=== PATIENT | female | born 1955 | race African-American/Black ===

== ENCOUNTER 2018-03-09 18:32 | Emergency (ER) | payer MEDICAID, MEDICARE ==
[2018-03-09 19:00] LABS: HEMATOCRIT 38.9 % (36.0-47.0); HEMOGLOBIN 13.1 g/dL (12.0-15.5); MEAN CORPUSCULAR HEMOGLOBIN 29 pg (25-35); MEAN CORPUSCULAR HGB CONC 34 g/dL (31-37); MEAN CORPUSCULAR VOLUME 86 fL (79-100); PLATELET COUNT 312 x10^3/uL (140-400); RED BLOOD COUNT 4.54 x10^6/uL (3.50-5.40); RED CELL DISTRIBUTION WIDTH 13.9 % (11.5-14.5); WHITE BLOOD COUNT 10.5 x10^3/uL (4.0-11.0)
[2018-03-09 19:03] LABS: AGAP ISTAT 14 mmol/L (6-14); BUN ISTAT 17 mg/dL (8-26); CHLORIDE ISTAT 102 mmol/L (98-110); CREATININE ISTAT 0.8 mg/dL (0.5-1.4); GLUCOSE ISTAT 140 mg/dL (70-99); HEMATOCRIT ISTAT 39 % (36-40); HEMOGLOBIN ISTAT 13.3 g/dL (12-15); ION CA ISTAT 1.11 mmol/L (1.13-1.32); POTASSIUM ISTAT 3.8 mmol/L (3.5-5.0); SODIUM ISTAT 138 mmol/L (135-145); TOT CO2 ISTAT 27 mmol/L (23-32)
[2018-03-09 19:03] LABS: POC GLUCOSE 140 mg/dL (70-99)
[2018-03-09 19:04] LABS: PARTIAL THROMBOPLASTIN TIME 25 SEC (24-38); PROTHROMBIN TIME PATIENT 12.8 SEC (11.7-14.0)
[2018-03-09 19:16] LABS: ANION GAP 8 (6-14); BLOOD UREA NITROGEN 17 mg/dL (7-20); CALCIUM 9.1 mg/dL (8.5-10.1); CARBON DIOXIDE 27 mmol/L (21-32); CHLORIDE 101 mmol/L (98-107); CREATININE 0.9 mg/dL (0.6-1.0); GFR 76.5; GLUCOSE 144 mg/dL (70-99); POTASSIUM 3.8 mmol/L (3.5-5.1); SODIUM 136 mmol/L (136-145)
[2018-03-09 19:25] LABS: TROPONINI < 0.017 ng/mL (0.000-0.055)
[2018-03-09] MEDS: ALTEPLASE 8 MG IV (19:30)
[2018-03-09] MEDS: ALTEPLASE IV (19:31)
[2018-03-09 19:37] LABS: ISTAT PT 11.6 Sec (10.0-14.0)
[2018-03-09] MEDS: IV NORMAL SALINE 50ML 50 ML IV (20:19)
== END 2018-03-09 19:59 | disposition short-term general hospital (02) ==
LOC: ER 19:59
DX: R29.810 Facial weakness (principal); R46.4 Slowness and poor responsiveness; R47.1 Dysarthria and anarthria; R41.82 Altered mental status, unspecified; Z88.0 Allergy status to penicillin
CPT/HCPCS: 36415; 37195; 70450; 71045; 80047; 80048; 82962; 84484; 85027; 85610; 85730; 93005; 99285-25; J2997

== ENCOUNTER 2021-12-02 13:23 | Inpatient (IN) | payer MEDICAID, OTHER ==
[~2021-12-02] VITALS: Ht 162.6 cm; Wt 88.2 kg
[2021-12-02 13:51] LABS: BASO # 0.1 x10^3/uL (0.0-0.2); BASO % 1 % (0-3); EOS # 0.2 x10^3/uL (0.0-0.7); EOS % 1 % (0-3); HEMATOCRIT 39.6 % (36.0-47.0); HEMOGLOBIN 12.5 g/dL (12.0-15.5); LYMPH # 2.1 x10^3/uL (1.0-4.8); LYMPH % 13 % (24-48); MEAN CORPUSCULAR HEMOGLOBIN 27 pg (25-35); MEAN CORPUSCULAR HGB CONC 32 g/dL (31-37); MEAN CORPUSCULAR VOLUME 84 fL (79-100); MONO % 6 % (0-9); NEUT # 13.4 x10^3/uL (1.8-7.7); NEUT % 80 % (31-73); PLATELET COUNT 540 x10^3/uL (140-400); RED BLOOD COUNT 4.69 x10^6/uL (3.50-5.40); RED CELL DISTRIBUTION WIDTH 15.9 % (11.5-14.5); WHITE BLOOD COUNT 16.8 x10^3/uL (4.0-11.0)
--- NOTE | 2021-12-02 13:52 | PHYS DOC ---
Past Medical History Past Medical History: COPD, Depression, Diabetes-Type II, Glaucoma, Schiz ophrenia Past Surgical History: Other Additional Past Surgical Histo: Unable to obtain Smoking Status: Unknown if ever smoked Alcohol Use: None Drug Use: None General Adult HPI: HPI: Patient is a 66-year-old female, vital signs reviewed, presents to the emergency department via EMS outcomes specialist transport from [facility] for decreased appetite, failure to thrive, abdominal pain for the past 3 days. Patient has a past medical history of paranoid schizophrenia, current urinary tract infection treatment on day 8 of a 10-day Cipro Floxin regimen, anemia, major depressive disorder, type 2 diabetes, blindness of the right eye, emphysema, nicotine dependence, dry eye syndrome. There was no treatment given in route to the emergency department. Patient complains of generalized abdominal pain all over rating 10 out of 10 pain. Complains of shortness of breath, denies chest pain, chest palpitations, chest or nasal congestion, denies recent fever or chills, reports she has cataracts and does not see well, denies aches and pains to other parts of her body, denies dizziness, denies burning with urination, increased urinary frequency, states she has not had a bowel movement for "quite some time now ". States she does not ambulate but uses a wheelchair. Review of Systems: Review of Systems: 14 body systems of review of systems have been reviewed. See HPI for pertinent positives and negative responses, otherwise all other systems are negative, nonpertinent or noncontributory. Constitutional: Negative except as outlined in HPI above. Skin: Negative except as outlined in HPI above. Eyes: Negative except as outlined in HPI above. HENT: Negative except as outlined in HPI above. Respiratory: Negative except as outlined in HPI above. Cardiovascular: Negative except as outlined in HPI above. GI: Negative except as outlined in HPI above. : Negative except as outlined in HPI above. Musculoskeletal: Negative except as outlined in HPI above. Integument: Negative except as outlined in HPI above. Neurologic: Negative except as outlined in HPI above. Endocrine: Negative except as outlined in HPI above. Lymphatic: Negative except as outlined in HPI above. Psychiatric: Negative except as outlined in HPI above. Heart Score: C/O Chest Pain: No Risk Factors: Risk Factors: DM, Current or recent (<one month) smoker, HTN, HLP, family history of CAD, obesity. Risk Scores: Score 0 - 3: 2.5% MACE over next 6 weeks - Discharge Home Score 4 - 6: 20.3% MACE over next 6 weeks - Admit for Clinical Observation Score 7 - 10: 72.7% MACE over next 6 weeks - Early Invasive Strategies Current Medications: Per long term MAR Abilify 20 mg daily acetaminophen 325 mg 2 tabs every 4 hours as needed pain/fever, lispro insulin 10 units with meals plus sliding scale, 81 mg aspirin daily Cipro 250 mg twice daily x10 days started on 11/25/2021, Pepcid 20 mg daily, hydrochlorothiazide 12.5 mg daily, Levemir insulin 10 units nightly, Lexapro 10 mg daily, Lipitor 20 mg daily, loperamide 2 mg every 8 hours as needed diarrhea, Metformin 1000 mg twice daily, milk of magnesia as needed constipation, MiraLAX daily 17 mg, multivitamin daily, Nicorette gum as needed, Norvasc 10 mg daily, Zofran 4 mg 1 tablet as needed every 8 hours nausea. Allergies: Allergies: Allergies Coded Allergies Type Severity Reaction Last Updated Verified Penicillins Allergy Intermediate 03/09/18 Yes Physical Exam: PE: Constitutional: Well developed, well nourished, no acute distress, non-toxic appearance. 56-year-old female in no apparent distress. Patient is wearing incontinence briefs HENT: Normocephalic, atraumatic. Oral mucosa sticky, oropharynx nonerythematous, no deep tissue infectious process appreciated, there is no laryngeal edema, patient speaking in normal voice tones. There is no lymphadeno pam of the head or neck appreciated, bilateral TMs partially obstructed with cerumen, no abnormalities of visualized TMs. Eyes: Conjunctiva normal, no discharge. Sclera opaque Neck: Normal range of motion, no stridor. No nuchal rigidity, no meningeal s igns Cardiovascular: No cyanosis appreciated, distal cap refill less than 2 seconds. Regular rate and rhythm, heart sounds S1-S2. Lungs & Thorax: Patient is in no respiratory distress, no audible adventitious lung sounds appreciated. Lung sounds are clear to auscultation all lung hernandez. Abdomen: Abdomen round, patient obese, nonspecific generalized abdominal pain all 4 quadrants, no masses, no megaly. Skin: Warm, dry, no erythema, no rash. There are abrasions to bilateral lower extremities below both knees, healing, no infectious process appreciated. Back: No tenderness, no deformities. Extremities: No tenderness, no cyanosis, no clubbing, ROM intact, no edema. Distal cap refill less than 2 seconds all 4 extremities. 2+/4 pulses. Neurologic: Alert and oriented X 3, normal motor function, normal sensory function, no focal deficits noted. Psychologic: Affect normal, judgement normal, mood normal. EKG: EKG: EKG performed at 1340 by ED nursing staff shows a sinus tachycardia without other ectopy, heart rate 105 bpm, OH interval 0.130 QTc interval 0.453, no acute STEMI, no ACS, no acute ischemia appreciated, EKG interpreted by ED attending physician Dr. Marin. Radiology/Procedures: Radiology/Procedures: Single AP view of the chest. Comparison: 03/09/2018. Indication: Shortness of breath Findings: There is mild atelectasis in the right lung base. The heart is enlarged but stable. There is no pneumothorax or effusion. No air space or interstitial disease. Impression: 1. No acute cardiopulmonary process. Electronically signed by: Darshan Molina MD (12/02/2021 2:31 PM) [facility] Examination: CT of the abdomen pelvis without contrast HISTORY: History of generalized abdominal pain in 4 quadrants COMPARISON: 04/01/2012 TECHNIQUE: Axial CT images of the abdomen pelvis were performed without contrast. Coronal and sagittal reformats are performed Exposure: One or more of the following individualized dose reduction techniques were utilized for this examination: 1. Automated exposure control 2. Adjustment of the mA and/or kV according to patient size 3. Use of iterative reconstruction technique FINDINGS: Focal consolidation right lower lobe of the lung likely pneumonia or atelectasis. Minimal atelectasis left lung base. No evidence of free air identified in the abdomen. The visualized noncontrasted liver, spleen, left adrenal grossly appears unremarkable. Small calcification identified in the right adrenal gland. Cholecystectomy changes identified. The stomach is mildly distended. The visualized pancreas grossly appears unremarkable The small bowel is nondilated. Mild thickened appearance of the wall of the small bowel is in the loops in the left mid abdomen. Moderate amount of feces and gas identified in the colon. Urinary bladder is mildly distended Enlarged retroperitoneal lymph nodes identified with the largest measuring 3.1 cm. Slightly increased in size compared to prior exam. Enlarged right pelvic lymph node identified with the largest measuring 4.2 cm. Prominent densities identified in the posterior pelvic region with some calcifications within could be prominent appearing ovaries aren't lymph nodes. Differentiation is difficult. Mild degenerative changes lumbar spine IMPRESSION: 1. Mild thickened appearance of the wall of the small bowel is in the loops in the left mid abdomen could be due to mild enteritis. 2. Enlarged retroperitoneal, right pelvic lymph nodes identified with the largest measuring 4.2 cm. Prominent densities identified in the posterior pelvic region with some calcifications within could be prominent appearing ovaries or lymph nodes. Differentiation is difficult. If recent diagnosis includes metastasis,, lymphoma. Consider PET/CT scan. 3. Focal consolidation right lower lobe of the lung likely pneumonia or atelectasis. Electronically signed by: Jozef Connolly MD (12/02/2021 2:55 PM) [id number] PROCEDURE: ABDOMEN LTD INDICATION: Reason: Right upper quadrant study, elevated liver enzymes, abdo kwame pain / Spl. Instructions: / History: COMPARISON: CT from same day TECHNIQUE: Grayscale and color ultrasound images obtained through the abdomen. FINDINGS: Pancreas: Somewhat limited secondary to overlying structures obscuring Liver: Echotexture within normal limits. Gallbladder: Removed Common Bile Duct: 8 mm Right Kidney: No hydronephrosis. Aorta/IVC: Partially seen secondary to overlying structures obscuring IMPRESSION: * Postcholecystectomy changes with prominent common bile duct which is commonly seen postoperatively. Electronically signed by: Kev Long MD (12/02/2021 3:32 PM) [id number] PROCEDURE: CT ANGIO CHEST ABD PELVIS Exam: CT of chest, abdomen and pelvis with contrast INDICATION: Elevated liver enzymes, severe abdominal pain TECHNIQUE: Sequential axial images through the chest, abdomen and pelvis obtained following the administration of 90 mL of Omni 350 IV contrast. Sagittal and coronal reformatted images were reconstructed from the axial data and revie wed. 3-D reformatted images were reconstructed from the axial data and reviewed. Exposure: One or more of the following in the visualized dose reduction techniques were utilized for this examination: 1. Automated exposure control 2. Adjustment of the MA and/or KV according to patient size 3. Use of iterative of reconstructive technique Comparisons: 12/02/2021 FINDINGS: No enlarged mediastinal lymph nodes are identified. Heart size is normal. No pericardial effusion. Thoracic aorta has normal course and caliber. Pulmonary artery is not enlarged. Airways are patent. Strandy opacities the dependent portion lungs likely representing atelectasis. No consolidation or pneumothorax. No suspicious lung nodules. No pleural effusion or thickening. Liver, spleen, pancreas and adrenals are unremarkable. Gallbladder surgically absent. No perinephric inflammation or hydronephrosis. No renal or ureteral calculi are identified. Bladder is partially distended and appears thin-walled. Uterus is absent. Rounded lesions at the adnexa bilaterally greater on the left measuring 4.4 cm in diameter. Moderate amount of stool noted in the colon. Appendix is nonidentified. No free intra-abdominal air or fluid. No obstruction. Abdominal aorta has normal course and caliber. Abdominal vasculature is patent. There are numerous enlarged retroperitoneal lymph nodes noted which appears similar when compared to the prior study. No suspicious osseous lesions or acute fractures. IMPRESSION: 1. Bibasilar bandlike opacities. Favored to represent atelectasis. Developing infectious process is difficult to exclude. 2. Redemonstration of enlarged retroperitoneal and pelvic nodes which are nonspecific. Electronically signed by: Renetta Caruso MD (12/02/2021 5:27 PM) [facility] Course & Med Decision Making: Course & Med Decision Making Pertinent Labs and Imaging studies reviewed. (See chart for details) 66-year-old female, vital signs reviewed, presents to the emergency department concerning decreased appetite and abdominal discomfort for the past 3 days, patient comes from [facility]. Physical examination conc erning for abdominal process, will order CBC, CMP, EKG, chest x-ray, troponin I, CT abdomen pelvis with IV contrast, urinalysis assay, magnesium, phosphorus. Patient is on day 8 of 10 days ciprofloxacin regimen for urinary tract infection. Blood cultures x2, lactic acid were also ordered. Concerns of patient failure to thrive. Patient's WBC 16.8 with neutrophilia of 13.4. Patient does have an elevated anion gap of 17, patient's creatinine is 1.8 which is elevated from 0.9 from 4 years ago. The patient's lactic acid is elevated at 4.2, elevated AST ALT and alkaline phos with a normal bilirubin is noted. The patient's urine does show hematuria without other signs of infectious process. The patient's abdomen examination continues to be concerning with pain out of proportion to physical examination. Discussed case with ED attending physician Dr. Marin who recommended patient have CT angiogram of chest abdomen pelvis and lieu of creatinine 1.8. Patient will be given 30 mg/kg saline fluid bolus. Will start cefepime regimen related to patient's penicillin allergy, will cover with vancomycin per pharmacy dosing. Patient's CT chest concerning for right lower lobe pneumonia, no other emergent concerning findings present. Upon reevaluation of the patient, patient reports her pain is down to a 7 out of 10 from a 10 out of 10. Recommended with patient admission to the hospital. Patient is amenable to ED admission planning. Called and discussed patient case and ED work-up with inpatient management physician Dr. Falcon who agrees patient's ED presentation and case warrants admission to the [facility] unit for abdominal pain, sepsis, right lower lobe pneumonia, failure to thrive. Dr. Falcon did not recommend any further specialty consults at this time. [facility], patient vital signs remained stable, is in no apparent distress. Dragon Disclaimer: Dragon Disclaimer: This electronic medical record was generated, in whole or in part, using a voice recognition dictation system. Departure Departure Impression: Primary Impression: Abdominal pain Qualified Codes: R10.84 - Generalized abdominal pain Additional Impressions: Sepsis Qualified Codes: A41.9 - Sepsis, unspecified organism Right lower lobe pneumonia Qualified Codes: J18.9 - Pneumonia, unspecified organism Failure to thrive Qualified Codes: R62.7 - Adult failure to thrive Disposition: ADMITTED INPATIENT Admitting Physician: KEENAN ([facility]) Condition: GUARDED Referrals: LYLE SANZ (PCP) FEI BARON APRN Dec 02, 2021 13:52
[2021-12-02 14:03] LABS: CALCIUM 9.4 mg/dL (8.5-10.1); CREATININE 1.8 mg/dL (0.6-1.0); POTASSIUM 4.2 mmol/L (3.5-5.1)
[2021-12-02 14:09] LABS: ALBUMIN 2.9 g/dL (3.4-5.0); ALBUMIN/GLOBULIN RATIO 0.7 (1.0-1.7); MAGNESIUM 2.2 mg/dL (1.8-2.4); PHOSPHORUS 5.2 mg/dL (2.6-4.7); TOTAL BILIRUBIN 0.5 mg/dL (0.2-1.0)
[2021-12-02] MEDS ORDERED: CEFEPIME HCL IV Push 2 GM VIAL. IVP ONE (14:30)
--- NOTE | 2021-12-02 14:34 | RAD ---
Single AP view of the chest. Comparison: 03/09/2018. Indication: Shortness of breath Findings: There is mild atelectasis in the right lung base. The heart is enlarged but stable. There is no pneu mothorax or effusion. No air space or interstitial disease. Impression: 1. No acute cardiopulmonary process. Electronically signed by: Darshan Molina MD (12/02/2021 2:31 PM) [facility]
[2021-12-02 14:55] LABS: BILIRUBIN,URINE MODERATE (NEG); CLARITY,URINE CLEAR; COLOR,URINE YELLOW
[2021-12-02 14:56] LABS: PH,URINE 5.5 (<5.0-8.0); PROTEIN,URINE 100 mg/dL (NEG-TRACE)
[2021-12-02 14:57] LABS: NITRITE,URINE NEGATIVE (NEG)
--- NOTE | 2021-12-02 14:57 | RAD ---
Examination: CT of the abdomen pelvis without contrast HISTORY: History of generalized abdominal pain in 4 quadrants COMPARISON: 04/01/2012 TECHNIQUE: Axial CT images of the abdomen pelvis were performed without contrast. Coronal and sagitta l reformats are performed Exposure: One or more of the following individualized dose reduction techniques were utilized for thi s examination: 1. Automated exposure control 2. Adjustment of the mA and/or kV according to patient size 3. Use of iterative reconstruction technique FINDINGS: Focal consolidation right lower lobe of the lung likely pneumonia or atelectasis. Minimal atelectasis left lung base. No evidence of free air identified in the abdomen. The visualized noncontrasted liver, spleen, left adrenal grossly appears unremarkable. Small calcific ation identified in the right adrenal gland. Cholecystectomy changes identified. The stomach is mildly distended. The visualized pancreas grossly appears unremarkable The small bowel is nondilated. Mild thickened appearance of the wall of the small bowel is in the loo ps in the left mid abdomen. Moderate amount of feces and gas identified in the colon. Urinary bladder is mildly distended Enlarged retroperitoneal lymph nodes identified with the largest measuring 3.1 cm. Slightly increased in size compared to prior exam. Enlarged right pelvic lymph node identified with the largest measuri ng 4.2 cm. Prominent densities identified in the posterior pelvic region with some calcifications wit hin could be prominent appearing ovaries aren't lymph nodes. Differentiation is difficult. Mild degenerative changes lumbar spine IMPRESSION: 1. Mild thickened appearance of the wall of the small bowel is in the loops in the left mid abdomen could be due to mild enteritis. 2. Enlarged retroperitoneal, right pelvic lymph nodes identified with the largest measuring 4.2 cm. Prominent densities identified in the posterior pelvic region with some calcifications within could b e prominent appearing ovaries or lymph nodes. Differentiation is difficult. If recent diagnosis inclu fanta metastasis,, lymphoma. Consider PET/CT scan. 3. Focal consolidation right lower lobe of the lung likely pneumonia or atelectasis. Electronically signed by: Jozef Connolly MD (12/02/2021 2:55 PM) [id number]
[2021-12-02 14:59] LABS: AMORPHOUS SEDIMENT,UR PRESENT /HPF; BACTERIA,URINE FEW /HPF (0-FEW)
[2021-12-02] MEDS: IV NORMAL SALINE 1000ML BAG 1,000 ML IV SCH ×2 (15:00→15:36)
--- NOTE | 2021-12-02 15:35 | RAD ---
INDICATION: Reason: Right upper quadrant study, elevated liver enzymes, abdominal pain / Spl. Instruc tions: / History: COMPARISON: CT from same day TECHNIQUE: Grayscale and color ultrasound images obtained through the abdomen. FINDINGS: Pancreas: Somewhat limited secondary to overlying structures obscuring Liver: Echotexture within normal limits. Gallbladder: Removed Common Bile Duct: 8 mm Right Kidney: No hydronephrosis. Aorta/IVC: Partially seen secondary to overlying structures obscuring IMPRESSION: * Postcholecystectomy changes with prominent common bile duct which is commonly seen postoperatively . Electronically signed by: Kev Long MD (12/02/2021 3:32 PM) [id number]
[2021-12-02] MEDS ORDERED: VANCOMYCIN PER PHARMACY MC PRN (16:15)
[2021-12-02] MEDS ORDERED: IOHEXOL 350 MG/ML 100 ML VIAL. IV ONE (16:30)
[2021-12-02] MEDS ORDERED: CONTRAST GIVEN. MC PRN (16:30)
[2021-12-02] MEDS ORDERED: VANCOMYCIN 2 GM in IV NORMAL SALINE 500ML BAG 500 ML IV ONE (17:00)
--- NOTE | 2021-12-02 17:30 | RAD ---
Exam: CT of chest, abdomen and pelvis with contrast INDICATION: Elevated liver enzymes, severe abdominal pain TECHNIQUE: Sequential axial images through the chest, abdomen and pelvis obtained following the admin istration of 90 mL of Omni 350 IV contrast. Sagittal and coronal reformatted images were reconstructe d from the axial data and reviewed. 3-D reformatted images were reconstructed from the axial data and reviewed. Exposure: One or more of the following in the visualized dose reduction techniques were utilized for this examination: 1. Automated exposure control 2. Adjustment of the MA and/or KV according to patient size 3. Use of iterative of reconstructive technique Comparisons: 12/02/2021 FINDINGS: No enlarged mediastinal lymph nodes are identified. Heart size is normal. No pericardial effusion. Thoracic aorta has normal course and caliber. Pulmonar y artery is not enlarged. Airways are patent. Strandy opacities the dependent portion lungs likely representing atelectasis. No consolidation or pneumothorax. No suspicious lung nodules. No pleural effusion or thickening. Liver, spleen, pancreas and adrenals are unremarkable. Gallbladder surgically absent. No perinephric inflammation or hydronephrosis. No renal or ureteral calculi are identified. Bladder is partially distended and appears thin-walled. Uterus is absent. Rounded lesions at the adne xa bilaterally greater on the left measuring 4.4 cm in diameter. Moderate amount of stool noted in the colon. Appendix is nonidentified. No free intra-abdominal air o r fluid. No obstruction. Abdominal aorta has normal course and caliber. Abdominal vasculature is patent. There are numerous enlarged retroperitoneal lymph nodes noted which appears similar when compared to the prior study. No suspicious osseous lesions or acute fractures. IMPRESSION: 1. Bibasilar bandlike opacities. Favored to represent atelectasis. Developing infectious process is difficult to exclude. 2. Redemonstration of enlarged retroperitoneal and pelvic nodes which are nonspecific. Electronically signed by: Renetta Caruso MD (12/02/2021 5:27 PM) [facility]
[2021-12-02] MEDS ORDERED: IV NORMAL SALINE 1000ML BAG 1,000 ML IV ONE (18:30)
--- NOTE | 2021-12-02 19:03 | EKG ---
[facility] [address] [place] [address] Test Date: 2021-12-02 Test Time: 13:40:37 Pat Name: HAKAN VILLEDA Department: Room: Gender: F Patient Observer: : 1955 Requested By: FEI BARON Order Number: [id number] Reading MD: Measurements Intervals [place] Rate: 105 P: 47 MA: 130 QRS: 24 QRSD: 92 T: 29 QT: 340 QTc: 453 Interpretive Statements SINUS TACHYCARDIA LOW LIMB LEAD VOLTAGE NO SPECIFIC ECG ABNORMALITIES RI6.02 No previous ECG available for comparison
[2021-12-02 21:00] VITALS: BP 104/53
--- NOTE | 2021-12-02 21:00 | NUR ---
Patient admitted from ER to room 408 per cart. Admitting diagnosis: abdominal pain, sepsis, RLL pneumonia and failure to thrive. Patient is from [facility]. Patient is alert and oriented x4. Patient is legally blind. Patient is allergic to penicillin. Patient states that she can not walk and in incontinent most of the time. Patient has become more lethargic and weaker than normal. Patient has pneumonia. Patient admitted for antibiotics and IV fluids. In no acute distress at this time. Will continue to monitor.
[2021-12-02] MEDS ORDERED: ATOR20TA PO (22:48)
[2021-12-02] MEDS ORDERED: MULT-245 PO (22:48)
[2021-12-02] MEDS ORDERED: INSU100C SQ (22:48)
[2021-12-02] MEDS ORDERED: INSU100V13 SQ (22:48)
[2021-12-02] MEDS ORDERED: FAMO20TA5 PO (22:48)
[2021-12-02] MEDS ORDERED: LOPE2TAB27 PO (22:48)
[2021-12-02] MEDS ORDERED: ARIP20TA5 PO (22:48)
[2021-12-02] MEDS ORDERED: ASPI-630 PO (22:48)
[2021-12-02] MEDS ORDERED: ACET325T21 PO (22:48)
[2021-12-02] MEDS ORDERED: POLY17PO29 PO (22:48)
[2021-12-02] MEDS ORDERED: ESCITALOPRAM OX10 MG PO (22:48)
[2021-12-02] MEDS ORDERED: AMLO10TA4 PO (22:49)
[2021-12-02] MEDS ORDERED: NICO2GUM5 BC (22:49)
[2021-12-02] MEDS ORDERED: ONDA4TAB12 PO (22:49)
[2021-12-02] MEDS: DOXYCYCLINE HYCLATE 100 MG TABLET PO SCH (23:25)
[2021-12-03 02:24] VITALS: BP 129/66
[2021-12-03 07:15] VITALS: BP 130/70
[2021-12-03] MEDS: DOXYCYCLINE HYCLATE 100 MG TABLET PO SCH ×2 (08:20→20:19)
--- NOTE | 2021-12-03 09:52 | PDOC1 ---
History and Physical Date of Service: DOS: DATE: 12/03/21 TIME: 09:52 Chief Complaint: Chief Complain: Respiratory distress, abd pain History of Present Illness: HPI: Patient not a very good historian thus H&P obtained from emergency room. Patient is a 66-year-old female, vital signs reviewed, presents to the emergency department via EMS organizational development consultant transport from [facility] for decr eased appetite, failure to thrive, abdominal pain for the past 3 days. Patient has a past medical history of paranoid schizophrenia, current urinary tract infection treatment on day 8 of a 10-day Cipro Floxin regimen, anemia, major depressive disorder, type 2 diabetes, blindness of the right eye, emphysema, nicotine dependence, dry eye syndrome. There was no treatment given in route to the emergency department. Patient complains of generalized abdominal pain all over rating 10 out of 10 pain. Complains of shortness of breath, denies chest pain, chest palpitations, chest or nasal congestion, denies recent fever or chills, reports she has cataracts and does not see well, denies aches and pains to other parts of her body, denies dizziness, denies burning with urination, increased urinary frequency, states she has not had a bowel movement for "quite some time now ". States she does not ambulate but uses a wheelchair. When I evaluated the patient she said she was feeling much improved says abdominal pain had resolved for the most part. Also reporting ongoing shortness of breath has significant breathing treatment. We will get this ordered continue pneumonia treatment. Past Medical/Surgical History: PMH/PSH: Past Medical History: COPD, Depression, Diabetes-Type II, Glaucoma, Schizophrenia Past Surgical History: Other Additional Past Surgical Histo: Unable to obtain Smoking Status: Unknown if ever smoked Alcohol Use: None Drug Use: None Allergies: Allergies: Coded Allergies: Penicillins (Verified Allergy, Intermediate, 12/02/21) Family History: Family History: unknown per patient Current Medications: Current Medications Current Medications Cefepime HCl (Maxipime) 2 gm 1X ONCE IVP Last administered on 12/02/21at 14:30; Start 12/02/21 at 14:30; Stop 12/02/21 at 14:38; Status DC Sodium Chloride 1,000 ml @ 1,710 mls/hr Q36M IV Last administered on 12/02/21at 15:00; Start 3/15/22 at 15:00; Stop 12/02/21 at 16:00; Status DC Vancomycin HCl (Vanco Per Pharmacy) 1 each PRN DAILY PRN [facility] SEE COMMENTS; Start 12/02/21 at 16:15; Stop 12/02/21 at 19:30; Status DC Vancomycin HCl 2 gm/Sodium Chloride 500 ml @ 250 mls/hr 1X ONCE IV Last administered on 12/02/21at 17:07; Start 12/02/21 at 17:00; Stop 12/02/21 at 18:59; Status DC Iohexol (Omnipaque 350 Mg/ml) 75 ml 1X ONCE IV Last administered on 12/02/21at 16:40; Start 12/02/21 at 16:30; Stop 12/02/21 at 16:31; Status DC Info (CONTRAST GIVEN -- Rx MONITORING) 1 each PRN DAILY PRN [facility] SEE COMMENTS; Start 12/02/21 at 16:30; Stop 12/04/21 at 16:29 Ceftriaxone Sodium (Rocephin) 1 gm Q24H IVP ; Start 12/03/21 at 09:00 Doxycycline Hyclate (Vibra-Tab) 100 mg BID PO Last administered on 12/03/21at 08:20; Start 12/02/21 at 21:00 Sodium Chloride 1,000 ml @ 1,000 mls/hr 1X ONCE IV Last administered on 12/02/21at 23:25; Start 12/02/21 at 18:30; Stop 12/02/21 at 19:29; Status DC Active Scripts Active Reported Ondansetron Odt (Ondansetron) 4 Mg Tab.rapdis 1 Tab PO PRN Q8HRS PRN Norvasc (Amlodipine Besylate) 10 Mg Tablet 10 Mg PO DAILY Nicorette (Nicotine Polacrilex) 2 Mg Gum 2 Mg BC PRN Q4HRS PRN Multi Vitamin Daily (Multivitamin) 1 Each Tablet 1 Tab PO DAILY 30 Days Miralax (Polyethylene Glycol 3350) 17 Gm Powd.pack 1 Packet PO DAILY 2 Days dissolve in water Loperamide (Loperamide Hcl) 2 Mg Tablet 1 Tab PO PRN Q8HRS PRN 30 Days Lipitor (Atorvastatin Calcium) 20 Mg Tablet 1 Tab PO DAILY Escitalopram Oxalate 10 Mg Tablet 1 Tab PO DAILY Levemir (Insulin Detemir) 100 Unit/1 Ml Vial 10 Unit SQ HS Famotidine 20 Mg Tablet 20 Mg PO DAILY Aspirin 81 Mg Tab.chew 1 Tab PO DAILY Humalog (Insulin Lispro) 100 Unit/1 Ml Cartridge 10 Unit SQ TIDWMEALS Acetaminophen 325 Mg Tablet 2 Tab PO PRN Q4HRS PRN 30 Days Abilify (Aripiprazole) 20 Mg Tablet 1 Tab PO DAILYWBKFT 30 Days ROS: Review of Systems Review of System Unless noted in HPI 14 point review of systems was negative Physical Exam: Vital Signs: Vital Signs Date Time Temp Pulse Resp B/P (MAP) Pulse Ox O2 Delivery O2 Flow Rate FiO2 12/03/21 07:15 97.7 102 20 130/70 (90) 94 Room Air 97.7 Physcial Exam: GEN: No apparent distress. Alert and oriented HEENT: Normal cephalic, atraumatic, external auditory canals are patent EYES: Extraocular muscles are intact, pupil are equally round and reactive to light and accommodation MUSCULOSKELETAL: Well developed , well nourished, good range of motion ENDOCRINE: No thyromegaly was palpated LYMPHATICS: No cervical chain or axillary nodes were noted HEMATOPOIETIC: No bruising NECK: Supple, no JVD, no thyromegaly was noted LUNGS: Clear to auscultation in all lung hernandez without rhonchi or wheezing HEART: RRR, S!, S2 present. Peripheral pulses intact, no obvious murmurs noted ABDOMEN: Soft, nontender. Positive bowel sounds, no organomegaly, normal bowel sounds EXTREMITIES: Without clubbing, cyanosis, or edema. Pedal pulses intact. Negative Homans sign NEUROLOGIC: Normal speech and tone. A&O x 3, moves all extremities, no obvious focal deficits PSYCHIATRIC: Normal affect, normal mood. Stable SKIN: No ulcerations or rashes, good skin turgor, no jaundice VASCULAR: Good capillary refill, neurovascular bundle appears to be intact Labs: Labs: Laboratory Tests Test 12/02/21 13:16 12/02/21 13:40 12/02/21 18:29 12/03/21 07:29 Urine Collection Type U cath Urine Color Yellow Urine Clarity Clear Urine pH 5.5 (<5.0-8.0) Urine Specific [place] >=1.030 (1.000-1.030) Urine Protein 100 mg/dL (NEG-TRACE) Urine Glucose (UA) Negative mg/dL (NEG) Urine Ketones (Stick) Trace mg/dL (NEG) Urine Blood Large (NEG) Urine Nitrite Negative (NEG) Urine Bilirubin Moderate (NEG) Urine Urobilinogen Dipstick 1.0 mg/dL (0.2 mg/dL) Urine Leukocyte Esterase Negative (NEG) Urine RBC 6-10 /HPF (0-2) Urine WBC 1-4 /HPF (0-4) Urine Squamous Epithelial Cells Few /LPF Urine Amorphous Sediment Present /HPF Urine Bacteria Few /HPF (0-FEW) Urine Mucus Slight /LPF White Blood Count 16.8 x10^3/uL (4.0-11.0) Red Blood Count 4.69 x10^6/uL (3.50-5.40) Hemoglobin 12.5 g/dL (12.0-15.5) Hematocrit 39.6 % (36.0-47.0) Mean Corpuscular Volume 84 fL (79-100) Mean Corpuscular Hemoglobin 27 pg (25-35) Mean Corpuscular Hemoglobin Concent 32 g/dL (31-37) Red Cell Distribution Width 15.9 % (11.5-14.5) Platelet Count 540 x10^3/uL (140-400) Neutrophils (%) (Auto) 80 % (31-73) Lymphocytes (%) (Auto) 13 % (24-48) Monocytes (%) (Auto) 6 % (0-9) Eosinophils (%) (Auto) 1 % (0-3) Basophils (%) (Auto) 1 % (0-3) Neutrophils # (Auto) 13.4 x10^3/uL (1.8-7.7) Lymphocytes # (Auto) 2.1 x10^3/uL (1.0-4.8) Monocytes # (Auto) 1.0 x10^3/uL (0.0-1.1) Eosinophils # (Auto) 0.2 x10^3/uL (0.0-0.7) Basophils # (Auto) 0.1 x10^3/uL (0.0-0.2) Sodium Level 143 mmol/L (136-145) Potassium Level 4.2 mmol/L (3.5-5.1) Chloride Level 102 mmol/L (98-107) Carbon Dioxide Level 24 mmol/L (21-32) Anion Gap 17 (6-14) Blood Urea Nitrogen 53 mg/dL (7-20) Creatinine 1.8 mg/dL (0.6-1.0) Estimated GFR (Cockcroft-Gault) 34.0 BUN/Creatinine Ratio 29 (6-20) Glucose Level 83 mg/dL (70-99) Lactic Acid Level 4.2 mmol/L (0.4-2.0) 1.3 mmol/L (0.4-2.0) Calcium Level 9.4 mg/dL (8.5-10.1) Phosphorus Level 5.2 mg/dL (2.6-4.7) Magnesium Level 2.2 mg/dL (1.8-2.4) Total Bilirubin 0.5 mg/dL (0.2-1.0) Aspartate Amino Transf (AST/SGOT) 392 U/L (15-37) Alanine Aminotransferase (ALT/SGPT) 527 U/L (14-59) Alkaline Phosphatase 375 U/L (46-116) Troponin I High Sensitivity 18 ng/L (4-50) Total Protein 7.0 g/dL (6.4-8.2) Albumin 2.9 g/dL (3.4-5.0) Albumin/Globulin Ratio 0.7 (1.0-1.7) Lipase 202 U/L (73-393) Glucose (Fingerstick) 134 mg/dL (70-99) Laboratory Tests Test 12/02/21 13:16 12/02/21 13:40 12/02/21 18:29 12/03/21 07:29 Urine Collection Type U cath Urine Color Yellow Urine Clarity Clear Urine pH 5.5 (<5.0-8.0) Urine Specific [place] >=1.030 (1.000-1.030) Urine Protein 100 mg/dL (NEG-TRACE) Urine Glucose (UA) Negative mg/dL (NEG) Urine Ketones (Stick) Trace mg/dL (NEG) Urine Blood Large (NEG) Urine Nitrite Negative (NEG) Urine Bilirubin Moderate (NEG) Urine Urobilinogen Dipstick 1.0 mg/dL (0.2 mg/dL) Urine Leukocyte Esterase Negative (NEG) Urine RBC 6-10 /HPF (0-2) Urine WBC 1-4 /HPF (0-4) Urine Squamous Epithelial Cells Few /LPF Urine Amorphous Sediment Present /HPF Urine Bacteria Few /HPF (0-FEW) Urine Mucus Slight /LPF White Blood Count 16.8 x10^3/uL (4.0-11.0) Red Blood Count 4.69 x10^6/uL (3.50-5.40) Hemoglobin 12.5 g/dL (12.0-15.5) Hematocrit 39.6 % (36.0-47.0) Mean Corpuscular Volume 84 fL (79-100) Mean Corpuscular Hemoglobin 27 pg (25-35) Mean Corpuscular Hemoglobin Concent 32 g/dL (31-37) Red Cell Distribution Width 15.9 % (11.5-14.5) Platelet Count 540 x10^3/uL (140-400) Neutrophils (%) (Auto) 80 % (31-73) Lymphocytes (%) (Auto) 13 % (24-48) Monocytes (%) (Auto) 6 % (0-9) Eosinophils (%) (Auto) 1 % (0-3) Basophils (%) (Auto) 1 % (0-3) Neutrophils # (Auto) 13.4 x10^3/uL (1.8-7.7) Lymphocytes # (Auto) 2.1 x10^3/uL (1.0-4.8) Monocytes # (Auto) 1.0 x10^3/uL (0.0-1.1) Eosinophils # (Auto) 0.2 x10^3/uL (0.0-0.7) Basophils # (Auto) 0.1 x10^3/uL (0.0-0.2) Sodium Level 143 mmol/L (136-145) Potassium Level 4.2 mmol/L (3.5-5.1) Chloride Level 102 mmol/L (98-107) Carbon Dioxide Level 24 mmol/L (21-32) Anion Gap 17 (6-14) Blood Urea Nitrogen 53 mg/dL (7-20) Creatinine 1.8 mg/dL (0.6-1.0) Estimated GFR (Cockcroft-Gault) 34.0 BUN/Creatinine Ratio 29 (6-20) Glucose Level 83 mg/dL (70-99) Lactic Acid Level 4.2 mmol/L (0.4-2.0) 1.3 mmol/L (0.4-2.0) Calcium Level 9.4 mg/dL (8.5-10.1) Phosphorus Level 5.2 mg/dL (2.6-4.7) Magnesium Level 2.2 mg/dL (1.8-2.4) Total Bilirubin 0.5 mg/dL (0.2-1.0) Aspartate Amino Transf (AST/SGOT) 392 U/L (15-37) Alanine Aminotransferase (ALT/SGPT) 527 U/L (14-59) Alkaline Phosphatase 375 U/L (46-116) Troponin I High Sensitivity 18 ng/L (4-50) Total Protein 7.0 g/dL (6.4-8.2) Albumin 2.9 g/dL (3.4-5.0) Albumin/Globulin Ratio 0.7 (1.0-1.7) Lipase 202 U/L (73-393) Glucose (Fingerstick) 134 mg/dL (70-99) Assessment/Plan Assessment/Plan Right lower lobe pneumonia likely gram-negative bacterial community-acquired, a bdominal pain improving, COPD type 2 diabetes schizophrenia failure to thrive severe malnutrition -Presented with shortness of breath and abdominal pain. Shortness of breath continuing although abdominal pain resolved -Pneumonia on imaging. Given allergies we will go ahead and start Rocephin doxy -As needed breathing treatments -PT OT -Wean oxygen as tolerated -Home meds as indicated -DVT prophylaxis Justifications for Admission Other Justification ANITA BENTON MD Dec 03, 2021 09:52
[2021-12-03] MEDS: cefTRIAXone IV Push 1 GM VIAL. IVP SCH (09:55)
[2021-12-03 10:54] VITALS: BP 135/72
[2021-12-03] MEDS: ASPIRIN CHEWABLE 81 MG TABLET. PO SCH (11:08)
[2021-12-03] MEDS: ARIPiprazole 5 MG TABLET PO SCH (11:08)
[2021-12-03] MEDS: CITALOPRAM 20 MG TABLET. PO SCH (11:08)
[2021-12-03] MEDS: FAMOTIDINE 20 MG TABLET. PO SCH (11:09)
[2021-12-03] MEDS: INSULIN LISPRO 300 UNITS/3 ML VIAL. SQ SCH ×2 (12:00→17:00)
--- NOTE | 2021-12-03 12:10 | NUR ---
MAYI following. Discussed with RN. 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 PT/OT ordered. COVID lab cancelled in chart - MAYI to determine if swab was obtained or not, as pt will need this prior to returning to [facility]. [facility]I will continue to follow. Addendum: 12/03/21 at 1455 by HUSSAIN SEE MAYI spoke with [facility] lab - they do not have record of a COVID test for this patient. RN notified - COVID swab being done.
[2021-12-03 14:58] VITALS: BP 126/71
[2021-12-03 19:00] VITALS: BP 127/61
[2021-12-03] MEDS ORDERED: INSULIN GLARGINE SYRINGE. SQ SCH (21:00)
[2021-12-03] MEDS ORDERED: ATORVASTATIN CALCIUM 20 MG TABLET PO SCH (21:00)
[2021-12-03 23:00] VITALS: BP 119/63
[2021-12-04 03:00] VITALS: BP 137/69
[2021-12-04 04:46] LABS: BASO # 0.1 x10^3/uL (0.0-0.2); BASO % 1 % (0-3); EOS # 0.3 x10^3/uL (0.0-0.7); EOS % 2 % (0-3); HEMATOCRIT 35.1 % (36.0-47.0); HEMOGLOBIN 11.4 g/dL (12.0-15.5); LYMPH # 2.1 x10^3/uL (1.0-4.8); LYMPH % 15 % (24-48); MEAN CORPUSCULAR HEMOGLOBIN 27 pg (25-35); MEAN CORPUSCULAR HGB CONC 32 g/dL (31-37); MEAN CORPUSCULAR VOLUME 84 fL (79-100); MONO # 0.9 x10^3/uL (0.0-1.1); MONO % 7 % (0-9); NEUT # 10.5 x10^3/uL (1.8-7.7); NEUT % 75 % (31-73); PLATELET COUNT 491 x10^3/uL (140-400); RED BLOOD COUNT 4.18 x10^6/uL (3.50-5.40); RED CELL DISTRIBUTION WIDTH 15.8 % (11.5-14.5)
[2021-12-04 05:37] LABS: ALBUMIN 2.3 g/dL (3.4-5.0); ALBUMIN/GLOBULIN RATIO 0.5 (1.0-1.7); CALCIUM 8.7 mg/dL (8.5-10.1); CREATININE 2.3 mg/dL (0.6-1.0); GFR 25.6; POTASSIUM 3.8 mmol/L (3.5-5.1); TOTAL BILIRUBIN 0.4 mg/dL (0.2-1.0); TOTAL PROTEIN 6.7 g/dL (6.4-8.2)
[2021-12-04 07:00] VITALS: BP 135/65
[2021-12-04] MEDS: INSULIN LISPRO 300 UNITS/3 ML VIAL. SQ SCH ×3 (08:00→16:39)
[2021-12-04] MEDS: ASPIRIN CHEWABLE 81 MG TABLET. PO SCH (08:35)
[2021-12-04] MEDS: DOXYCYCLINE HYCLATE 100 MG TABLET PO SCH (08:36)
[2021-12-04] MEDS: ARIPiprazole 5 MG TABLET PO SCH (08:36)
[2021-12-04] MEDS: FAMOTIDINE 20 MG TABLET. PO SCH (08:37)
[2021-12-04] MEDS: CITALOPRAM 20 MG TABLET. PO SCH (08:37)
[2021-12-04] MEDS: cefTRIAXone IV Push 1 GM VIAL. IVP SCH (08:44)
[2021-12-04] MEDS ORDERED: DOXYCYCLINE HYCLATE 100 MG TABLET PO SCH (09:00)
[2021-12-04] MEDS ORDERED: DOXY100T PO (10:30)
[2021-12-04] MEDS ORDERED: CEFD300C PO (10:30)
--- NOTE | 2021-12-04 10:31 | SNU/HH DC ---
DISCHARGE ORDERS DISCHARGE INFORMATION: FINAL DIAGNOSIS Problems Medical Problems: (1) Abdominal pain Status: Acute (2) Failure to thrive Status: Acute (3) Right lower lobe pneumonia Status: Acute (4) Sepsis Status: Acute CONDITION ON DISCHARGE: Stable CODE STATUS: Code Status: Full SENIOR LIVING: SNF STAY <30 DAYS: No POST DISCHARGE ORDERS: ACTIVITY ORDERS: No restrictions, Resume previous activity, Activity as tolerated WEIGHT BEARING STATUS: No restrictions DIET AFTER DISCHARGE: ADA CHECKS AFTER DISCHARGE: CHECKS AFTER DISCHARGE: Check blood press - daily TREATMENT/EQUIPMENT ORDERS: ADAPTIVE EQUIPMENT NEEDED: None RESPIRATORY EQUIPMENT NEEDED: Oxygen Physical Therapy For: Evalulation/Treatment Occupational Therapy For: Evaluation/Treatment DISCHARGE MEDICATIONS: Home Meds Active Scripts Cefdinir (CEFDINIR) 300 Mg Capsule, 1 CAP PO BID for pneumonia for 7 Days, #14 CAP Prov:ANITA BENTON MD 12/04/21 Doxycycline Hyclate (DOXYCYCLINE HYCLATE) 100 Mg Tablet, 100 MG PO BID for pneumonia for 7 Days, #14 TAB Prov:ANITA BENTON MD 12/04/21 Reported Medications Ondansetron (ONDANSETRON ODT) 4 Mg Tab.rapdis, 1 TAB PO PRN Q8HRS PRN for JENNIFER SEA, #16 TAB 12/02/21 Amlodipine Besylate (NORVASC) 10 Mg Tablet, 10 MG PO DAILY for hypertension, TAB 12/02/21 Nicotine Polacrilex (NICORETTE) 2 Mg Gum, 2 MG BC PRN Q4HRS PRN for nicotine craving, EACH 12/02/21 Multivitamin (MULTI VITAMIN DAILY) 1 Each Tablet, 1 TAB PO DAILY for supplement for 30 Days, #30 TAB 0 Refills 12/02/21 Polyethylene Glycol 3350 (MIRALAX) 17 Gm Powd.pack, 1 PACKET PO DAILY for constipation for 2 Days, #2 PACKET 0 Refills dissolve in water 12/02/21 Loperamide Hcl (LOPERAMIDE) 2 Mg Tablet, 1 TAB PO PRN Q8HRS PRN for DIARRHEA for 30 Days, TAB 0 Refills 12/02/21 Atorvastatin Calcium (LIPITOR) 20 Mg Tablet, 1 TAB PO DAILY for hyperlipidemia, #90 TAB 1 Refill 12/02/21 Escitalopram Oxalate (ESCITALOPRAM OXALATE) 10 Mg Tablet, 1 TAB PO DAILY for depression, #30 TAB 3 Refills 12/02/21 Insulin Detemir (LEVEMIR) 100 Unit/1 Ml Vial, 10 UNIT SQ HS for diabetes, EACH 12/02/21 Famotidine (FAMOTIDINE) 20 Mg Tablet, 20 MG PO DAILY for gastritis, TAB 12/02/21 Aspirin (ASPIRIN) 81 Mg Tab.chew, 1 TAB PO DAILY for hypertension, #30 TAB 3 Refills 12/02/21 Insulin Lispro (HUMALOG) 100 Unit/1 Ml Cartridge, 10 UNIT SQ TIDWMEALS for diabetes, EACH 12/02/21 Acetaminophen (ACETAMINOPHEN) 325 Mg Tablet, 2 TAB PO PRN Q4HRS PRN for pain or fever for 30 Days, #30 TAB 0 Refills 12/02/21 Aripiprazole (ABILIFY) 20 Mg Tablet, 1 TAB PO DAILYWBKFT for paranoid schizophrenia for 30 Days, #30 TAB 0 Refills 12/02/21 ANITA BENTON MD Dec 04, 2021 10:31
--- NOTE | 2021-12-04 10:33 | PDOC3 ---
[facility]-Discharge Summary Date of Admission: Date of Admission: Dec 03, 2021 Date of Discharge: Date of Discharge: Dec 04, 2021 Admission Diagnosis: Admitting Diagnosis: Pneumonia, abd pain Hospital Course: Hospital Course: HPI: Patient not a very good historian thus H&P obtained from emergency room. Patient is a 66-year-old female, vital signs reviewed, presents to the emergency department via EMS director funeral transport from [facility] for decreased appetite, failure to thrive, abdominal pain for the past 3 days. Patient has a past medical history of paranoid schizophrenia, current urinary tract infection treatment on day 8 of a 10-day Cipro Floxin regimen, anemia, major depressive disorder, type 2 diabetes, blindness of the right eye, emphysema, nicotine dependence, dry eye syndrome. There was no treatment given in route to the emergency department. Patient complains of generalized abdominal pain all over rating 10 out of 10 pain. Complains of shortness of breath, denies chest pain, chest palpitations, chest or nasal congestion, denies recent fever or chills, reports she has cataracts and does not see well, denies aches and pains to other parts of her body, denies dizziness, denies burning with urination, increased urinary frequency, states she has not had a bowel movement for "quite some time now ". States she does not ambulate but uses a wheelchair. When I evaluated the patient she said she was feeling much improved says abdominal pain had resolved for the most part. Also reporting ongoing shortness of breath has significant breathing treatment. We will get this ordered continue pneumonia treatment. 12/04 Patient evaluated examined at bedside. Resting in bed doing quite well. Says breathing improving quite a bit. Switch antibiotics to orals can discharge back to facility today to complete antibiotic course there. Patient is agreeable to this. Greater than 30 minutes spent on this discharge. Disposition: Disposition/Orders: D/C to Home Activity: Activity: Resume previous activity Diet: Diet: other (diabetyic) Medications: Home Meds Active Scripts Cefdinir (CEFDINIR) 300 Mg Capsule, 1 CAP PO BID for pneumonia for 7 Days, #14 CAP Prov:ANITA BENTON MD 12/04/21 Doxycycline Hyclate (DOXYCYCLINE HYCLATE) 100 Mg Tablet, 100 MG PO BID for pneumonia for 7 Days, #14 TAB Prov:ANITA BENTON MD 12/04/21 Reported Medications Ondansetron (ONDANSETRON ODT) 4 Mg Tab.rapdis, 1 TAB PO PRN Q8HRS PRN for NAUSEA, #16 TAB 12/02/21 Amlodipine Besylate (NORVASC) 10 Mg Tablet, 10 MG PO DAILY for hypertension, TAB 12/02/21 Nicotine Polacrilex (NICORETTE) 2 Mg Gum, 2 MG BC PRN Q4HRS PRN for nicotine craving, EACH 12/02/21 Multivitamin (MULTI VITAMIN DAILY) 1 Each Tablet, 1 TAB PO DAILY for supplement for 30 Days, #30 TAB 0 Refills 12/02/21 Polyethylene Glycol 3350 (MIRALAX) 17 Gm Powd.pack, 1 PACKET PO DAILY for constipation for 2 Days, #2 PACKET 0 Refills dissolve in water 12/02/21 Loperamide Hcl (LOPERAMIDE) 2 Mg Tablet, 1 TAB PO PRN Q8HRS PRN for DIARRHEA for 30 Days, TAB 0 Refills 12/02/21 Atorvastatin Calcium (LIPITOR) 20 Mg Tablet, 1 TAB PO DAILY for hyperlipidemia, #90 TAB 1 Refill 12/02/21 Escitalopram Oxalate (ESCITALOPRAM OXALATE) 10 Mg Tablet, 1 TAB PO DAILY for depression, #30 TAB 3 Refills 12/02/21 Insulin Detemir (LEVEMIR) 100 Unit/1 Ml Vial, 10 UNIT SQ HS for diabetes, EACH 12/02/21 Famotidine (FAMOTIDINE) 20 Mg Tablet, 20 MG PO DAILY for gastritis, TAB 12/02/21 Aspirin (ASPIRIN) 81 Mg Tab.chew, 1 TAB PO DAILY for hypertension, #30 TAB 3 Refills 12/02/21 Insulin Lispro (HUMALOG) 100 Unit/1 Ml Cartridge, 10 UNIT SQ TIDWMEALS for diabetes, EACH 12/02/21 Acetaminophen (ACETAMINOPHEN) 325 Mg Tablet, 2 TAB PO PRN Q4HRS PRN for pain or fever for 30 Days, #30 TAB 0 Refills 12/02/21 Aripiprazole (ABILIFY) 20 Mg Tablet, 1 TAB PO DAILYWBKFT for paranoid schizophrenia for 30 Days, #30 TAB 0 Refills 12/02/21 Scheduled Amlodipine Besylate (Norvasc), 10 MG PO DAILY, (Reported) Aripiprazole (Abilify), 1 TAB PO DAILYWBKFT, (Reported) Aspirin (Aspirin), 1 TAB PO DAILY, (Reported) Atorvastatin Calcium (Lipitor), 1 TAB PO DAILY, (Reported) Cefdinir (Cefdinir), 1 CAP PO BID Doxycycline Hyclate (Doxycycline Hyclate), 100 MG PO BID Escitalopram Oxalate (Escitalopram Oxalate), 1 TAB PO DAILY, (Reported) Famotidine (Famotidine), 20 MG PO DAILY, (Reported) Insulin Detemir (Levemir), 10 UNIT SQ HS, (Reported) Insulin Lispro (Humalog), 10 UNIT SQ TIDWMEALS, (Reported) Multivitamin (Multi Vitamin Daily), 1 TAB PO DAILY, (Reported) Polyethylene Glycol 3350 (Miralax), 1 PACKET PO DAILY, (Reported) Scheduled PRN Acetaminophen (Acetaminophen), 2 TAB PO PRN Q4HRS PRN for pain or fever, (Reported) Loperamide Hcl (Loperamide), 1 TAB PO PRN Q8HRS PRN for DIARRHEA, (Reported) Nicotine Polacrilex (Nicorette), 2 MG BC PRN Q4HRS PRN for nicotine craving, (Reported) Ondansetron (Ondansetron Odt), 1 TAB PO PRN Q8HRS PRN for NAUSEA, (Reported) Justicifation of Admission Dx: Justifications for Admission: Justification of Admission Dx: Yes (pneumonia) ANITA BENTON MD Dec 04, 2021 10:33
--- NOTE | 2021-12-04 10:37 | NUR ---
SW following. Discussed with RN, discharge order for pt to return to [facility]. SW faxed clinicals and orders. Awaiting transportation time. SW will continue to follow.
[2021-12-04 10:52] VITALS: BP 131/63
[2021-12-04 15:00] VITALS: BP 130/68
--- NOTE | 2021-12-04 16:47 | NUR ---
Patient left around 1646 with medicoach transportation on a gurney. NO IV access present. Report called to Edu around [address] [facility]. New antibiotics sent by the doctor. No concerns noted at discharge.
== END 2021-12-04 16:50 | DRG 871 ==
LOC: ER 13:23 → ED HOLD 18:00 → 4 NORTH 18:28
PROVIDERS: ADMIT Student in an Organized Health Care Education/Training Program; ATTEND Student in an Organized Health Care Education/Training Program
DX: A41.9 Sepsis, unspecified organism (principal); J15.6 Pneumonia due to other Gram-negative bacteria; E43 Unspecified severe protein-calorie malnutrition; F20.0 Paranoid schizophrenia; E11.9 Type 2 diabetes mellitus without complications; J43.9 Emphysema, unspecified; R62.7 Adult failure to thrive; Z85.72 Personal history of non-Hodgkin lymphomas; Z87.891 Personal history of nicotine dependence; F32.9 Major depressive disorder, single episode, unspecified; I10 Essential (primary) hypertension; E78.5 Hyperlipidemia, unspecified; Z68.33 Body mass index [BMI] 33.0-33.9, adult; Z88.0 Allergy status to penicillin; Z20.822 Contact with and (suspected) exposure to COVID-19
CPT/HCPCS: 36415; 71045; 71275; 74174; 74176; 76705; 80053; 81001; 82962; 83605; 83690; 83735; 84100; 84484; 85025; 87040; 87426; 93005; 96365; 96366; 96375; J0692; J0696; J1815; J3370; J7030; J7040; Q9967; U0003; 97530-GP; 97535-GO; 99285-25; G0378